=== PATIENT | male | born 1950 | race Caucasian/White ===

== ENCOUNTER → 2018-12-11 | Outpatient (CLI) | payer MEDICARE, OTHER ==
[~2018-12-11] MED LIST: ALBU90OI61 INH; AMLO5 PO; ANTIHYPERTENSIVE; ATEN50 PO; DIAZ5 PO; HYDCHL25 PO; LEVO750 PO; Naproxen500 MG PO; Percocet 5-3251 EACH PO; RAMI5 PO
[2018-12-14 13:44] LABS: Stool Occult Bld Immuno 1 Negative (NEGATIVE)
== END | disposition home or self-care (01) ==
LOC: LAB 12:53 → LAB SHORT 12:53 → LAB FUT 11-12 14:20
PROVIDERS: Family Medicine
DX: Z12.11 Encounter for screening for malignant neoplasm of colon (principal)
CPT/HCPCS: G0328

== ENCOUNTER 2019-11-30 06:12 | Day surgery (SDC) | payer MEDICARE, OTHER ==
[~2019-11-30] VITALS: Ht 177.8 cm; Wt 111.0 kg
[~2019-11-30 06:12] MED LIST changes: +AMLO10 PO; -AMLO5 PO; +ASPI81CH PO; +DOXA1 PO
[2019-11-30] MEDS ORDERED: CLOP75 PO (11:56)
--- NOTE | 2019-11-30 14:41 | NUR ---
PT AMB TO BTR WELL, R GROIN SITE STABLE, IV DC'D INTACT, 300MG PLAVIX GIVEN PER DR ORDER, PT STATES HE HAS PLAVIX 75 MG AT HOME AND WILL START TAKING TOMORROW, SISTER IN LAW GIVING PT RIDE HOME, PT DC'D BY WC BY THIS RN
== END 2019-11-30 15:05 | disposition home or self-care (01) ==
LOC: MHTC 06:12 → ORSCMMR 06:12 → MHTC 06:13
DX: I70.213 Atherosclerosis of native arteries of extremities with intermittent claudication, bilateral legs (principal); I10 Essential (primary) hypertension; F17.290 Nicotine dependence, other tobacco product, uncomplicated; I25.10 Atherosclerotic heart disease of native coronary artery without angina pectoris; E78.5 Hyperlipidemia, unspecified; Z88.8 Allergy status to other drugs, medicaments and biological substances; Z79.82 Long term (current) use of aspirin; Z79.899 Other long term (current) drug therapy
CPT/HCPCS: 37227; 37228; 37232; 75625; 75710; 75716; 75774; 85347; 99152; 99153; C1714; C1725; C1760; C1769; C1874; C1884; C1887; C1894; C2623; J1644; J2250; J3010; J7030; Q9967

== ENCOUNTER 2019-12-02 19:13 | Inpatient (IN) | payer MEDICARE, OTHER ==
[~2019-12-02] VITALS: Ht 185.4 cm; Wt 107.9 kg
[~2019-12-02 19:13] MED LIST changes: +CLOP75 PO
[2019-12-02 20:34] LABS: BASOPHILS ABSOLUTE AUTO 0.07 K/mm3 (0.00-0.23); BASOPHILS PERCENT AUTO 1 % (0-2); EOSINOPHILS ABSOLUTE AUTO 0.13 K/mm3 (0.00-0.68); EOSINOPHILS PERCENT AUTO 1 % (0-6); Hematocrit 44.3 % (37.0-53.0); Hemoglobin 14.9 g/dL (13.5-17.5); IMMATURE GRAN ABSOLUTE AUTO 0.04 K/mm3 (0.00-0.10); IMMATURE GRAN PERCENT AUTO 0 % (0-1); LYMPHOCYTES ABSOLUTE AUTO 2.83 K/mm3 (0.84-5.20); LYMPHOCYTES PERCENT AUTO 25 % (21-46); MONOCYTES ABSOLUTE AUTO 1.55 K/mm3 (0.16-1.47); MONOCYTES PERCENT AUTO 14 % (4-13); Mean Corpuscular HGB 31.9 pg (26.0-34.0); Mean Corpuscular HGB Conc 33.6 g/dL (31.5-36.5); Mean Corpuscular Volume 95 fL (80-100); NEUTROPHILS ABSOLUTE AUTO 6.63 K/mm3 (1.96-9.15); NEUTROPHILS PERCENT AUTO 59 % (41-73); Platelet Count 231 K/mm3 (150-400); RDW Coefficient Variation 13.2 % (11.7-14.2); RDW Standard Deviation 46.5 fL (35.1-46.3); Red Blood Cell Count 4.67 M/mm3 (4.30-5.90); White Blood Cell Count 11.25 K/mm3 (4.00-11.30)
[2019-12-02 20:53] LABS: Alanine Aminotransfer (ALT/SGP 30 U/L (12-78); Albumin, Blood 3.6 g/dL (3.4-5.0); Albumin/Globulin Ratio 0.8 (0.8-1.8); Alk Phos 47 U/L (50-136); Anion Gap 7 mmol/L (6-16); Aspartate Aminotrans (AST/SGOT 56 U/L (12-37); Bilirubin, Total 0.8 mg/dL (0.1-1.0); Blood Urea Nitrogen 21 mg/dL (8-24); Bun/Creatinine Ratio 21.4 (12.0-20.0); CO2, Blood 25 mmol/L (21-32); Chloride, Blood 101 mmol/L (98-108); Creatinine, Blood 0.98 mg/dL (0.60-1.20); Globulin, Blood 4.3 g/dL (2.2-4.0); Glomerular Filtration Rate >60 (60-); Glucose, Blood 98 mg/dL (70-99); Potassium, Blood 3.8 mmol/L (3.5-5.5); Sodium, Blood 133 mmol/L (136-145); Total Protein, Blood 7.9 g/dL (6.4-8.2)
[2019-12-02] MEDS ORDERED: Ventolin/Prove6.7 GM INH (21:17)
[2019-12-02] MEDS ORDERED: NICO21TP TOP (21:21)
[2019-12-02] MEDS ORDERED: LIVALO1 MG PO (21:21)
[2019-12-02] MEDS ORDERED: Cilostazol50 MG PO (21:22)
[2019-12-02 23:39] LABS: International Normalized Ratio 0.96; Prothrombin Time Results 10.3 Sec (9.7-11.5)
--- NOTE | 2019-12-03 01:20 | NUR ---
RECEIVED REPORT FROM KEVIN ED RN. PT TRANSPORTED TO PCU VIA GURNEY. STOOD AND PIVOTED TO BED UPON ARRIVAL. IN NO ACUTE DISTRESS. VS STABLE CALL LIGHT AND POSSESSIONS IN REACH, BED ALARM ACTIVATED. WILL CONTINUE TO MONITOR.
[2019-12-03 04:47] LABS: Hematocrit 41.8 % (37.0-53.0); Hemoglobin 13.8 g/dL (13.5-17.5); Mean Corpuscular HGB 31.9 pg (26.0-34.0); Mean Corpuscular Volume 97 fL (80-100); Mean Platelet Volume 9.4 fL (9.1-12.4); Platelet Count 217 K/mm3 (150-400); RDW Coefficient Variation 13.1 % (11.7-14.2); RDW Standard Deviation 47.1 fL (35.1-46.3); Red Blood Cell Count 4.33 M/mm3 (4.30-5.90); White Blood Cell Count 10.55 K/mm3 (4.00-11.30)
[2019-12-03 05:04] LABS: Alanine Aminotransfer (ALT/SGP 25 U/L (12-78); Albumin/Globulin Ratio 0.7 (0.8-1.8); Alk Phos 39 U/L (50-136); Anion Gap 6 mmol/L (6-16); Aspartate Aminotrans (AST/SGOT 49 U/L (12-37); Bilirubin, Total 0.9 mg/dL (0.1-1.0); Blood Urea Nitrogen 18 mg/dL (8-24); Bun/Creatinine Ratio 18.3 (12.0-20.0); CO2, Blood 26 mmol/L (21-32); Calcium, Blood 8.5 mg/dL (8.5-10.1); Chloride, Blood 101 mmol/L (98-108); Creatinine, Blood 0.98 mg/dL (0.60-1.20); Globulin, Blood 4.2 g/dL (2.2-4.0); Glomerular Filtration Rate >60 (60-); Glucose, Blood 97 mg/dL (70-99); Potassium, Blood 3.5 mmol/L (3.5-5.5); Sodium, Blood 133 mmol/L (136-145); Total Protein, Blood 7.2 g/dL (6.4-8.2)
--- NOTE | 2019-12-03 06:16 | NUR ---
PT SITTING UP IN BED WATCHING TELEVISION AT THIS TIME. WAS MONITORED EVERY 1-2 HOURS WITH NEEDS MET. SLEPT T/O. DENIES ANY NEEDS AT THIS TIME, CALL LIGHT AND POSSESSIONS IN REACH, BED IN LOW AND LOCKED POSITION, BED ALARM ACTIVATED.
--- NOTE | 2019-12-03 09:49 | NUR ---
PCU DAYSHIFT ASSUMED CARE PATIENT ALERT AND ORIENTED X4. RESP E/U ON ROOM AIR. PATIENT CONTINUES TO HAVE BLE PAIN. PATIENT HAD A REVASCULARIZATION TO BLE BY MD MULLER 11/30/[address] IN FEMORAL ARTERY. PATIENT CONTINEUS TO HAVE WEAK BLE PULSES, DISCOLORATION AND PAIN. HEPARIN GTT RUNNING PER EMAR. WILL CONTINUE TO MONTIOR. CALL LIGHT W/I REACH.
--- NOTE | 2019-12-03 17:53 | NUR ---
PCU DAYSHIFT SUMMARY PATIENT REMAINED ALERT AND ORIENTED T/O THE SHIFT X4. PATIENT HAS MODERATE TO SEVERE BLE PAIN DUE TO HIS PAD. PATIENT MEDICATED PER EMAR. PATIENTS VSS T/O SHIFT IN NSR IN THE 60'S. RESP E/U ON ROOM AIR. PATIENT TO SEE MD MULLER REGARDING REVASCULARIZATION. PATIENT EDUCATED MULTIPLE TIMES REGARDING SMOKING CESSATION. NICOTINE PATCH PLACED. WILL CONTINUE TO MONTIOR AND GIVE REPORT TO NOC SHIFT RN.
--- NOTE | 2019-12-03 19:30 | NUR ---
RECEIVED REPORT FROM JAMA MOYA. ASSUMED CARE OF PT. SITTING UP IN BED COMFORTABLY IN NO ACUTE DISTRESS, WATCHING TELEVISION. HEPARIN DRIP VERIFIED. PT DENIES ANY NEEDS AT THIS TIME. CALL LIGHT AND POSSESSIONS IN REACH, WILL CONTINUE TO MONITOR.
--- NOTE | 2019-12-03 21:50 | NUR ---
PT VISIBLY AGITATED, STATING, "WHY IS THIS THING (ALARM) BEEPING? HOW AM I SUPPOSED TO SLEEP?" RN EDUCATED PT REGARDING USE OF TAB ALARM FOR FALL PREVENTION POST MEDICATION ADMINISTRATION AND FOR GENERAL SAFETY. PT AGREEABLE AND RECEPTIVE. WILL CONTINUE TO MONITOR AND REINFORCE.
--- NOTE | 2019-12-04 06:24 | NUR ---
PT RESTING IN BED COMFORTABLY AT THIS TIME, IN NO ACUTE DISTRESS. WAS MONITORED EVERY 1-2 HOURS WITH NEEDS MET. DENIES ANY NEEDS. CALL LIGHT AND POSSESSIONS IN REACH, TAB ALARM IN PLACE, BED IN LOW POSITION.
[2019-12-04 06:54] LABS: Mean Platelet Volume 9.4 fL (9.1-12.4); Platelet Count 226 K/mm3 (150-400)
--- NOTE | 2019-12-04 18:15 | NUR ---
REPORT FROM DESK OFFICER RN.
--- NOTE | 2019-12-04 18:20 | NUR ---
REPORT FROM LORENA YUN IN PCU.
--- NOTE | 2019-12-04 18:34 | NUR ---
PT ARRIVES TO UNIT ALERT AND ORIENTED. PT TO ICU 9. SITES TO RIGHT GROIN, LEFT GROIN AND LEFT ANKLE WNL. DRESSING TO BILAT GROINS CLEAN AND DRY. PT DENIES PAIN, DENIES SOB. PT ANSWERS QUESTIONS APPROPRIATELY. SKIN DRY. VSS. WILL REPORT NOC RN.
--- NOTE | 2019-12-04 19:45 | NUR ---
ASSUMPTION OF CARE: PT IN ICU POST WARP SPOOLER. A&O. CURRENTLY ON FLAT TIME X 4 HRS. SB WITH HR IN THE 50S. SBP IN THE 110S. LUNG SOUNDS CLEAR SPO2 >90% ON RA. BILAT GROIN SITE DRESSINGS ARE C/D/I. NO HEMATOMA, NO BLEEDING, NO REPORTED TENDERNESS. RADIAL AND PEDAL PULSES PALPABLE. PT REPORTS SENSATION RETURNING BACK TO FEET AND THAT THEY FEEL "TINGLY". TOES ARE PINK AND WARM. IV IN RAC AND R HAND. RAC IV IS HOOKED UP TO NS BUT DRIP IS NOT RUNNING. HEPARIN ON STANDBY AWAITING CURRENT APTT. [facility]
--- NOTE | 2019-12-04 21:27 | NUR ---
PT INSTRUCTED ON IMPORTANCE OF FLAT TIME AND NEED TO KEEP LEGS STRAIGHT
--- NOTE | 2019-12-04 22:00 | NUR ---
PHARMACY CALLED REGARDING APTT RESULT AND HEPARIN DOSING. CALL PLACED TO DR MULLER RE ORDERS FOR HEPARIN DOSING. ORDERS RECEIVED TO BOLUS HEPARIN BASED ON APTT RESULT. DOSING PER PHARMACY.
--- NOTE | 2019-12-05 01:27 | NUR ---
PT CURRENTLY RESTING ON L SIDE. WAS ABLE TO SIT AND EAT DINNER. VITALS REMAIN STABLE. BILAT GROIN ACCESS SITES C/D/I. NO HEMATOMA, BLEEDING, OR PAIN. R PEDAL ACCESS SITE C/DI. PEDAL PULSES PRESENT. BILAT TOES ARE PINK AND WARM. PT STATED THEY ARE TINGLING BUT NOT PAINFUL LIKE THEY WERE PRIOR TO COMING INTO HOSPITAL.
[2019-12-05 04:24] LABS: Alanine Aminotransfer (ALT/SGP 35 U/L (12-78); Albumin, Blood 2.8 g/dL (3.4-5.0); Albumin/Globulin Ratio 0.7 (0.8-1.8); Alk Phos 52 U/L (50-136); Anion Gap 7 mmol/L (6-16); Aspartate Aminotrans (AST/SGOT 36 U/L (12-37); Bilirubin, Total 0.9 mg/dL (0.1-1.0); Blood Urea Nitrogen 15 mg/dL (8-24); Bun/Creatinine Ratio 15.5 (12.0-20.0); CO2, Blood 24 mmol/L (21-32); Calcium, Blood 8.6 mg/dL (8.5-10.1); Chloride, Blood 102 mmol/L (98-108); Creatinine, Blood 0.97 mg/dL (0.60-1.20); Globulin, Blood 4.1 g/dL (2.2-4.0); Glomerular Filtration Rate >60 (60-); Glucose, Blood 105 mg/dL (70-99); Sodium, Blood 133 mmol/L (136-145); Total Protein, Blood 6.9 g/dL (6.4-8.2)
--- NOTE | 2019-12-05 05:50 | NUR ---
NO ACUTE CHANGES THROUGHOUT SHIFT. BILAT GROIN SITES C/D/I. NO HEMATOMA, BLEED, OR PAIN. BILAT RADIAL AND BILAT PEDAL PRESENT. PT HAS BEEN RESTING COMFORTABLY THROUGHOUT SHIFT. HEPARIN INFUSING AT 20UN/KG. PT IS TO NPO AFTER BREAKFAST AND WILL GO BACK TO COLLECTIONS ANALYST TODAY.
--- NOTE | 2019-12-05 06:22 | NUR ---
PT REPORTING THAT R FOOT IS BEGINNING TO FEEL MORE NUMB. REPORTS IT IS STILL BETTER THAN A COUPLE DAYS AGO. PEDAL PULSES REMAIN FAINT SO CHECKED WITH DOPPLER. STILL PRESENT BILATERALLY. BOTH FEET ARE WARM AND PINK. CAP REFILL <3 SEC. PLAN IS FOR PT TO GO BACK TO FINISH MIXER. WILL REPORT TO DAY SHIFT CHANGES
--- NOTE | 2019-12-05 11:30 | NUR ---
DR. YOHANA MULLER TO BEDSIDE FOR REPEAT ASSESSMENT. PLAN CONTINUES FOR PRECINCT CAPTAIN THIS AFTERNOON/EVENING, NO SET TIME YET. PT AWARE AND AGREEABLE.
--- NOTE | 2019-12-05 12:28 | NUR ---
CARE ASSUMED REPORT RECEIVED, CARE ASSUMED AT 0700 FROM JAMA JUSTICE. PT ALERT FOR BEDSIDE REPORT, ABLE TO PARTICIPATE IN PLAN OF CARE. VITALS STABLE. ACCESS SITES C/D/I, SITES SOFT WITH NO HEMATOMAS. PT MEDICATED ONCE FOR PAIN, BUT SINCE THEN REPORTS PAIN MANAGEABLE. SENSATION TO BILATERAL FEET DECREASED, PT IS ABLE TO FEEL WHEN TOUCHED. PINK, WARM. PLAN FOR COLLECTIVE BARGAINING SPECIALIST THIS AFTERNOON. BREAKFAST GIVEN PER NURSE NOTIFY BY DR. MULLER, SINCE THEN PT NPO. PT HAS ARTICULATED NEEDS CLEARLY THROUGHOUT MORNING. HEPARIN GTT PER ORDERS. SEE FLOWSHEETS/ASSESSMENTS.
--- NOTE | 2019-12-05 16:38 | NUR ---
PT TO ADJUNCT ENGLISH INSTRUCTOR
--- NOTE | 2019-12-05 19:07 | NUR ---
RETURN FROM PROJECT PRODUCT MANAGER PT RETURNED FROM PROJECT PRODUCT MANAGER AT 1858. VITALS STABLE. LEFT PEDAL SITE STABLE. PULSES PRESENT WITH DOPPLER. PT BOOSTED IN BED FOR COMFORT, DECLINES FURTHER NEEDS. REPORT TO JAMA RILEY TO ASSUME CARE. HEPARIN GTT VERIFIED.
--- NOTE | 2019-12-05 21:30 | NUR ---
ASSUMED CARE OF PT, REPORT RCV'D FROM JAMA SLAUGHTER. PT BACK FROM DOOR FRAMER AT 0650. PT ALERT AND ORIENTED COMPLAINING OF 9-10/10 PAIN BLE. LEFT PEDAL ACCESS SITE DRESSING C/D/I, C/O TINGLING. BLE WARM, PINK. DOPPLER PULSES BLE, LEFT PULSE MORE FAINT THAN RIGHT. HEPARIN GTT INFUSING @21 U/KG/HR WITH DOSING WT 92 KG. SEE FULL SHIFT ASSESSMENT
[2019-12-06 04:31] LABS: BASOPHILS ABSOLUTE AUTO 0.07 K/mm3 (0.00-0.23); BASOPHILS PERCENT AUTO 1 % (0-2); EOSINOPHILS PERCENT AUTO 1 % (0-6); Hematocrit 40.1 % (37.0-53.0); Hemoglobin 13.5 g/dL (13.5-17.5); IMMATURE GRAN ABSOLUTE AUTO 0.02 K/mm3 (0.00-0.10); IMMATURE GRAN PERCENT AUTO 0 % (0-1); LYMPHOCYTES PERCENT AUTO 21 % (21-46); MONOCYTES ABSOLUTE AUTO 1.06 K/mm3 (0.16-1.47); MONOCYTES PERCENT AUTO 12 % (4-13); Mean Corpuscular HGB 31.5 pg (26.0-34.0); Mean Corpuscular HGB Conc 33.7 g/dL (31.5-36.5); Mean Platelet Volume 8.7 fL (9.1-12.4); NEUTROPHILS PERCENT AUTO 65 % (41-73); Platelet Count 257 K/mm3 (150-400); RDW Coefficient Variation 12.5 % (11.7-14.2); RDW Standard Deviation 43.3 fL (35.1-46.3); Red Blood Cell Count 4.28 M/mm3 (4.30-5.90); White Blood Cell Count 9.05 K/mm3 (4.00-11.30)
[2019-12-06 04:37] LABS: Mean Corpuscular Volume 94 fL (80-100)
[2019-12-06 04:47] LABS: Anion Gap 4 mmol/L (6-16); Blood Urea Nitrogen 13 mg/dL (8-24); Bun/Creatinine Ratio 15.3 (12.0-20.0); CO2, Blood 28 mmol/L (21-32); Calcium, Blood 8.6 mg/dL (8.5-10.1); Chloride, Blood 99 mmol/L (98-108); Creatinine, Blood 0.85 mg/dL (0.60-1.20); Glomerular Filtration Rate >60 (60-); Glucose, Blood 115 mg/dL (70-99); Potassium, Blood 3.9 mmol/L (3.5-5.5); Sodium, Blood 131 mmol/L (136-145)
--- NOTE | 2019-12-06 06:08 | NUR ---
SHIFT SUMMARY NO ACUTE CHANGES OVERNIGHT. LEFT PEDAL ACCESS SITE DRESSING REMAINS C/D/I, L FOOT PULSES HEARD WITH DOPPLER, LEFT FOOT WARM/PINK. PT REPORTS LESSENING PAIN SHIFT PROGRESSES. PT DENIES PAIN IN RIGHT LEG AT THIS TIME. BILATERAL FEMORAL ACCESS SITES UNCHANGED SINCE BEGINNING OF SHIFT. HEPARIN INFUSING @ 22 U/KG/HR WITH 92 KG DOSING WT. VSS T/O SHIFT. WILL REPORT TO DAYSHIFT NURSE
--- NOTE | 2019-12-06 07:40 | NUR ---
CARE ASSUMED REPORT RECEIVED, CARE ASSUMED AT 0700. PT ASLEEP, AROUSES EASILY FOR ASSESSMENT. VITALS STABLE. PULSES PRESENT TO BILATERAL LOWER EXTREMITIES WITH DOPPLER. PT REPORTS PAIN SPECIFICALLY IN LEFT FOOT, DECLINES MEDICATIONS AT THIS TIME. SEE VITALS FLOWSHEET AND ASSESSMENT. PT DENIES NEEDS AT THIS TIME. AGREEABLE TO DO BATH/SHOWER AFTER BREAKFAST.
--- NOTE | 2019-12-06 10:02 | NUR ---
TRANSFER DR. SAMANO TO BEDSIDE FOR ASSESSMENT. PLAN FOR ONE MORE NIGHT IN HOSPITAL FOR PT/OT EVALUATION AND POSSIBLE SNF PLACEMENT TOMORROW. TRANSFER TO MEDICAL NO TELEMETRY STATUS. ATTEMPTED TO CONTACT DR. MULLER TO DISCUSS PLAN FOR HEPARIN GTT, AWAITING RETURN PHONE CALL. NOTIFIED BY CIRCULAR SAW OPERATOR THAT PT TO TRANSFER TO MEDICAL FLOOR ROOM 324. PT UPDATED AND AGREEABLE TO PLAN. REPORT GIVEN TO JAMA TERESA ON MEDICAL FLOOR.
--- NOTE | 2019-12-06 10:36 | NUR ---
TRANSFER PT TO ROOM 324 VIA WHEELCHAIR WITH HEPARIN GTT INFUSING PER ORDERS. JAMA TERESA AT BEDSIDE. PT ABLE TO STAND AND TRANSFER TO BED WITH STANDBY ASSIST.
--- NOTE | 2019-12-06 13:50 | NUR ---
Permission for care given to student by patient at 13:50
--- NOTE | 2019-12-06 16:59 | NUR ---
SHIFT SUMMARY PATIENT TRANSFERED FROM THE ICU TO THIS RN. TRANSFERED 1 PERSON ASSIST TO BED. PATIENT IS ALERT AND ORIENTED. USES THE URINAL. PATIENT WORKED WITH PT/OT TODAY, TOLERATED THIS WELL. HE IS ABLE TO MAKE HIS NEEDS KNOWN. CONTINUES TO HAVE PAIN IN THE L LEG.MEDICATED PER EMAR FOR DISCOMFORT.
--- NOTE | 2019-12-06 19:57 | NUR ---
patient sitting up in bed. He rports pain 4/10. we discussed pain meds, risk of falling, patient is AOx4 and calling appropriately. Shift assessment completed. bed low and locked. call stokes within reach.
--- NOTE | 2019-12-07 04:38 | NUR ---
SPOKE TO DR HORNER REGARDING PATIENT TEMP 100.4 RECVD ORDER FOR TYLENOL.
[2019-12-07 04:51] LABS: BASOPHILS ABSOLUTE AUTO 0.12 K/mm3 (0.00-0.23); BASOPHILS PERCENT AUTO 1 % (0-2); EOSINOPHILS ABSOLUTE AUTO 0.29 K/mm3 (0.00-0.68); EOSINOPHILS PERCENT AUTO 3 % (0-6); Hematocrit 38.4 % (37.0-53.0); Hemoglobin 13.1 g/dL (13.5-17.5); IMMATURE GRAN ABSOLUTE AUTO 0.02 K/mm3 (0.00-0.10); IMMATURE GRAN PERCENT AUTO 0 % (0-1); LYMPHOCYTES ABSOLUTE AUTO 1.89 K/mm3 (0.84-5.20); LYMPHOCYTES PERCENT AUTO 20 % (21-46); MONOCYTES ABSOLUTE AUTO 1.22 K/mm3 (0.16-1.47); MONOCYTES PERCENT AUTO 13 % (4-13); Mean Corpuscular HGB Conc 34.1 g/dL (31.5-36.5); Mean Corpuscular Volume 94 fL (80-100); Mean Platelet Volume 8.7 fL (9.1-12.4); NEUTROPHILS ABSOLUTE AUTO 5.87 K/mm3 (1.96-9.15); NEUTROPHILS PERCENT AUTO 62 % (41-73); Platelet Count 258 K/mm3 (150-400); RDW Coefficient Variation 12.5 % (11.7-14.2); RDW Standard Deviation 43.3 fL (35.1-46.3); White Blood Cell Count 9.41 K/mm3 (4.00-11.30)
[2019-12-07 05:12] LABS: Anion Gap 7 mmol/L (6-16); Blood Urea Nitrogen 18 mg/dL (8-24); CO2, Blood 23 mmol/L (21-32); Calcium, Blood 8.6 mg/dL (8.5-10.1); Chloride, Blood 99 mmol/L (98-108); Glomerular Filtration Rate >60 (60-); Glucose, Blood 97 mg/dL (70-99); Potassium, Blood 3.9 mmol/L (3.5-5.5); Sodium, Blood 129 mmol/L (136-145)
--- NOTE | 2019-12-07 06:42 | NUR ---
END OF SHIFT: PATIENT DECLINED PAIN MED MOST OF THE NIGHT BUT WHEN HE FINALLY AGREED TO TAKE A PAIN MED HE SAID HIS PAIN WAS A 7/10. PAIN MED GIVEN PER EMAR. TWICE THIS SHIFT. EDUCATED PATIENT ABOUT PAIN MANAGEMENT; THAT HE SHOULD TAKE IT WHEN IT STARTS TO INCREASE RATHER THAN WAITING FOR THE PAIN TO BE REALLY SEVERE.
[2019-12-07] MEDS ORDERED: Pravachol40 MG PO (10:59)
--- NOTE | 2019-12-07 11:51 | NUR ---
DISCHARGE NOTE PATIENT DISCHARGED WITH SISTER. HARD SCRIPT GIVEN FROM DR. LEWIS. 1X DOSE OF NORCO GIVEN PER ORDER FOR DRIVE HOME. SCRIPTS FAXED TO [facility] IN [place].
== END 2019-12-07 12:03 | disposition home health service (06) | DRG 272 ==
LOC: ER 19:13 → PCU 19:14 → ICUW 12-04 18:33 → MEDS 12-06 10:40
PROVIDERS: Emergency Medicine; Internal Medicine; Physician Assistant; ADMIT Internal Medicine
PROC: 047L3D1 Dilation of Left Femoral Artery with Intraluminal Device, using Drug-Coated Balloon, Percutaneous Approach (ICD-10-PCS; principal; 2019-12-04)
PROC: B41G1ZZ Fluoroscopy of Left Lower Extremity Arteries using Low Osmolar Contrast (ICD-10-PCS; 2019-12-04)
PROC: B41C1ZZ Fluoroscopy of Pelvic Arteries using Low Osmolar Contrast (ICD-10-PCS; 2019-12-04)
PROC: 04CL3ZZ Extirpation of Matter from Left Femoral Artery, Percutaneous Approach (ICD-10-PCS; 2019-12-04)
PROC: X27J385 Dilation of Left Femoral Artery with Sustained Release Drug-eluting Intraluminal Device, Percutaneous Approach, New Technology Group 5 (ICD-10-PCS; 2019-12-04)
DX: I77.1 Stricture of artery (principal); E78.5 Hyperlipidemia, unspecified; I10 Essential (primary) hypertension; I73.9 Peripheral vascular disease, unspecified; F17.210 Nicotine dependence, cigarettes, uncomplicated
CPT/HCPCS: 36415; 37224; 37227; 75710; 75716; 75774; 76937; 80048; 80053; 85025; 85027; 85049; 85347; 85610; 85730; 90686; 93005; 93010; 93925; 94760; 96365; 96375; 96376; 97112; 97162; 97165; 97530; 99152; 99153; 99285-25; A9270; A9270-GY; C1714; C1725; C1769; C1874; C1887; C1894; C2623; G0008; G0378; J1170; J1644; J2250; J3010; J7030; J7040; Q9967

== ENCOUNTER 2020-02-22 12:30 | Inpatient (IN) | payer MEDICARE, OTHER ==
[~2020-02-22] VITALS: Ht 185.4 cm; Wt 108.9 kg
[~2020-02-22 12:30] MED LIST changes: +AIRDUO RESPICL1 EAC3 INH; +Cilostazol50 MG PO; +GABA300 PO; +LIVALO1 MG PO; +LIVALO4 MG PO; +NICO21TP TOP; +Pravachol40 MG PO; +ROSU5 PO; +Ventolin/Prove6.7 GM INH
[2020-02-22] MEDS ORDERED: Oxycodone-Apap1 EAC3 PO (15:58)
--- NOTE | 2020-02-22 16:31 | NUR ---
PT PREVIOUSLY MEDICATED WITH FENTANYL FOR 8/10 LEFT LEG PAIN, PT REPORTS NOW THAT PAIN LEVEL IS TOLERABLE. SITTING ON EDGE OF BED, DENIES ANY NEEDS AT THIS TIME. CALL LIGHT WITHIN REACH. PT AWAITING PROCEDURE.
--- NOTE | 2020-02-22 22:00 | NUR ---
PT TO ICU 13 @ 2110, PT VERY DROWSY, AROUSES TO VERBAL STIMULI, FALLS ASLEEP DURING ASSESSMENT, ORIENTED TO SELF, PLACE, EVENT AND FOLLOWING DIRECTIONS. O2 SATURATIONS> 90% ON RA, MONITOR SHOWS SINUS RHYTHM, HR 70'S, HTN WITH SBP 150'S. PT REPORTS PAIN TO L LIMB, DENIES PAIN MEDICATIONS AT THIS TIME. ARTERIAL SHEATH IN PLACE TO L TIBIAL, INF TPA @ 1mg/hr. HEPARIN INF TO PERIPHERAL IV, 500u/hr (10ml/hr). UNABLE TO PALPATE L PEDAL PULSE DUE TO SHEATH PLACEMENT AND DRESSING TO DP, DOPPLER PULSES ABSENT, L FOOT/TOES CYANOTIC/PURPLE AND COOL TO THE TOUCH, GOOD CAP REFILL, L POPLITEAL PULSE PRESENT. PT UNABLE TO FEEL TOUCH SENSATION TO L FOOT.
[2020-02-23 03:19] LABS: BASOPHILS ABSOLUTE AUTO 0.06 K/mm3 (0.00-0.23); BASOPHILS PERCENT AUTO 1 % (0-2); EOSINOPHILS ABSOLUTE AUTO 0.04 K/mm3 (0.00-0.68); EOSINOPHILS PERCENT AUTO 1 % (0-6); Hematocrit 43.3 % (37.0-53.0); Hemoglobin 14.3 g/dL (13.5-17.5); IMMATURE GRAN ABSOLUTE AUTO 0.03 K/mm3 (0.00-0.10); IMMATURE GRAN PERCENT AUTO 0 % (0-1); LYMPHOCYTES PERCENT AUTO 14 % (21-46); MONOCYTES ABSOLUTE AUTO 0.57 K/mm3 (0.16-1.47); MONOCYTES PERCENT AUTO 7 % (4-13); Mean Corpuscular HGB 30.6 pg (26.0-34.0); Mean Corpuscular Volume 93 fL (80-100); Mean Platelet Volume 7.9 fL (9.1-12.4); NEUTROPHILS ABSOLUTE AUTO 6.75 K/mm3 (1.96-9.15); NEUTROPHILS PERCENT AUTO 78 % (41-73); Platelet Count 180 K/mm3 (150-400); RDW Coefficient Variation 15.6 % (11.7-14.2); Red Blood Cell Count 4.67 M/mm3 (4.30-5.90); White Blood Cell Count 8.65 K/mm3 (4.00-11.30)
[2020-02-23 03:37] LABS: Alanine Aminotransfer (ALT/SGP 16 U/L (12-78); Albumin, Blood 3.4 g/dL (3.4-5.0); Albumin/Globulin Ratio 0.8 (0.8-1.8); Alk Phos 59 U/L (50-136); Anion Gap 7 mmol/L (6-16); Aspartate Aminotrans (AST/SGOT 23 U/L (12-37); Bilirubin, Total 0.6 mg/dL (0.1-1.0); Blood Urea Nitrogen 14 mg/dL (8-24); Bun/Creatinine Ratio 19.2 (12.0-20.0); CO2, Blood 25 mmol/L (21-32); Calcium, Blood 8.8 mg/dL (8.5-10.1); Chloride, Blood 103 mmol/L (98-108); Creatinine, Blood 0.73 mg/dL (0.60-1.20); Glomerular Filtration Rate >60 (60-); Glucose, Blood 107 mg/dL (70-99); Potassium, Blood 3.6 mmol/L (3.5-5.5); Sodium, Blood 135 mmol/L (136-145); Total Protein, Blood 7.4 g/dL (6.4-8.2)
--- NOTE | 2020-02-23 07:15 | NUR ---
BEGINNING OF SHIFT Assumed care at 0700. Bedside report received from Nuzhat YUN. Pt A&O x 2. Lethargic. SpO2 90% or greater RA. Arterial sheath present to left post tibial artery. TPA infusing through sheath. Rate at 1 mg/hr. To remain at this rate per Dr Tom. Heparin infusing through peripheral IV per orders. Left toes cyanotic with capillary refill greater than 3 seconds. Per report, toes are improved in appearance. Pt states desire to get OOB. This RN reviewed medication delivery through arterial sheath and discouraged out of bed activity. Pt agreeable. Bed in lowest position. Call light in reach. Bed alarm on.
--- NOTE | 2020-02-23 07:26 | NUR ---
SHIFT SUMMARY PT SLEPT T/O SHIFT, INCREASED ALERTNESS TOWARDS END OF SHIFT. PT REMAINS ON RA, O2 SATURATIONS>90%, MONITOR SHOWS SINUS RHYTHM, BP STABLE. PT REMAINED NPO T/O SHIFT. PT MEDICATED FOR PAIN x2 THIS SHIFT, FENTANYL ADEQUATE FOR PAIN CONTROL. TPA @ 1MG/HR INF TO L FOOT ARTERIAL SHEATH, HEPARIN INF @ 500u/hr (10ml/hr) PER PERIPHERAL IV. L FOOT REMAINS COOL TO THE TOUCH, TOES CYANOTIC. PLAN FOR SUPERVISOR PIPELINE MAINTENANCE TODAY, REPORT GIVEN TO KIMBERLY YUN.
--- NOTE | 2020-02-23 08:15 | NUR ---
DR MULLER IN TO SEE PT Reviewed appearance of LLE. Provider aware of pt's pain to LLE. Pt states 10/10 pain, stabbing. Started approx 10 minutes ago. Sheath is also leaking a small amount of blood. Provider aware. Plans for pt to be taken to yard laborer soon.
--- NOTE | 2020-02-23 08:30 | NUR ---
PT TO CHILD DEVELOPMENT SPECIALIST Reji RN in room to take pt to laboratory monitor. RN aware that pt just received dose of fentanyl.
--- NOTE | 2020-02-23 10:49 | NUR ---
UPDATE Pt returned from garage laborer. Arterial sheath to left post tibial absent. Gian patch in place. Site has quarter-sized amount of drainage on dressing. Outlined. Will continue to assess. Tegaderm CHG in place over right dosral foot from pedal access on 02/20. Dressing C/D/I. Tegaderm chg to new right femoral artery site. Per report, angioseal used. Site C/D/I. No bruising or hematoma noted.
--- NOTE | 2020-02-23 11:12 | NUR ---
AM MEDS Held preprocedure. Plan to give meds when pt is more alert.
--- NOTE | 2020-02-23 18:40 | NUR ---
SUMMARY Pt is currently PCU status. Pt has been A&O x 4 for most of time this afternoon. Pt sat up in chair for about 4 hours. Pt did not eat breakfast or lunch. Tolerated dinner well. Pt on room air for entire shift. Sinus rhtyhm per monitor. BP hypertensive, but this resolved when pt received his AM meds. Pt's right groin site stable. Remains covered with tegaderm CHG with no drainage, bruising, or hematoma. RLE assessment unchanged from pre-access assessment. Pt initially had arterial sheath to left posttibial artery. Sheath removed upon arrival back to ICU from laboratory aide. Gian patch in place. Pt has arterial site to dorsum of left foot from access yesterday. Dressing changed to tegaderm CHG in cathlab. WIth ambulation to chair today, site started bleeding. Pressure held for 5 minutes by this RN. Gian patch placed. No bleeding since. Unable to locate distal pulses with doppler on left foot. Toes remain cyanotic but cyanotic area is regressing. This afternoon, pain is tolerable to left foot. Heparin drip infusing per orders. Will continue to closely monitor until care handoff and bedside report with oncoming RN.
[2020-02-24 01:35] LABS: BASOPHILS ABSOLUTE AUTO 0.05 K/mm3 (0.00-0.23); BASOPHILS PERCENT AUTO 1 % (0-2); EOSINOPHILS ABSOLUTE AUTO 0.08 K/mm3 (0.00-0.68); EOSINOPHILS PERCENT AUTO 1 % (0-6); Hematocrit 39.2 % (37.0-53.0); Hemoglobin 12.8 g/dL (13.5-17.5); IMMATURE GRAN ABSOLUTE AUTO 0.02 K/mm3 (0.00-0.10); IMMATURE GRAN PERCENT AUTO 0 % (0-1); LYMPHOCYTES ABSOLUTE AUTO 1.89 K/mm3 (0.84-5.20); LYMPHOCYTES PERCENT AUTO 28 % (21-46); MONOCYTES PERCENT AUTO 9 % (4-13); Mean Corpuscular HGB 30.4 pg (26.0-34.0); Mean Corpuscular HGB Conc 32.7 g/dL (31.5-36.5); Mean Corpuscular Volume 93 fL (80-100); Mean Platelet Volume 8.4 fL (9.1-12.4); NEUTROPHILS ABSOLUTE AUTO 4.18 K/mm3 (1.96-9.15); NEUTROPHILS PERCENT AUTO 61 % (41-73); Platelet Count 143 K/mm3 (150-400); RDW Coefficient Variation 15.8 % (11.7-14.2); RDW Standard Deviation 53.2 fL (35.1-46.3); Red Blood Cell Count 4.21 M/mm3 (4.30-5.90); White Blood Cell Count 6.82 K/mm3 (4.00-11.30)
--- NOTE | 2020-02-24 04:44 | NUR ---
SHIFT SUMMARY PATIENT HAS SLEPT OFF AND ON THROUGH NIGHT. PAIN GREATLLY IMPROVED WITH ADDITION OF NORCO. HAVE NOTICED TOES HAVE BECOME MORE PURPLE; AT BEGIN OF SHIFT, PURPLE WAS NOTED ONLY ON UNDERSIDE OF TOES, NOW ABOUT PRISON UP TOES ON THE DORSAL ASPECT. STILL ABLE TO DOPPLE TIBIAL PULSE, SOUNDS STRONGER EVEN THAN BEGIN OF SHIFT. RIGHT FEMORAL SITE STABLE THROUGH NIGHT, NO OOZING, S/S OF BLEEDING. VSS. ASSESSMENT IS CHARTED. WILL CONTINUE TO MONITOR.
[2020-02-24 08:33] LABS: BASOPHILS ABSOLUTE AUTO 0.05 K/mm3 (0.00-0.23); BASOPHILS PERCENT AUTO 1 % (0-2); EOSINOPHILS ABSOLUTE AUTO 0.07 K/mm3 (0.00-0.68); EOSINOPHILS PERCENT AUTO 1 % (0-6); Hematocrit 36.8 % (37.0-53.0); Hemoglobin 12.4 g/dL (13.5-17.5); IMMATURE GRAN ABSOLUTE AUTO 0.01 K/mm3 (0.00-0.10); IMMATURE GRAN PERCENT AUTO 0 % (0-1); LYMPHOCYTES PERCENT AUTO 27 % (21-46); MONOCYTES ABSOLUTE AUTO 0.68 K/mm3 (0.16-1.47); MONOCYTES PERCENT AUTO 10 % (4-13); Mean Corpuscular HGB 30.9 pg (26.0-34.0); Mean Corpuscular HGB Conc 33.7 g/dL (31.5-36.5); Mean Corpuscular Volume 92 fL (80-100); Mean Platelet Volume 8.2 fL (9.1-12.4); NEUTROPHILS ABSOLUTE AUTO 4.24 K/mm3 (1.96-9.15); NEUTROPHILS PERCENT AUTO 61 % (41-73); Platelet Count 168 K/mm3 (150-400); RDW Coefficient Variation 15.9 % (11.7-14.2); RDW Standard Deviation 52.8 fL (35.1-46.3); Red Blood Cell Count 4.01 M/mm3 (4.30-5.90); White Blood Cell Count 6.95 K/mm3 (4.00-11.30)
--- NOTE | 2020-02-24 11:40 | NUR ---
BEGINNING OF SHIFT Assumed care at 0700. Bedside report received from Edgardo YUN. Pt A&O x 4. Pt on room air. SpO2 90% or greater. Pt on heart monitor, sinus rhtyhm. Dr Eagle in to see pt early this AM. States pt okay for medical floor status without telemetry. Plan for pt to work with PT today, potential for discharge home tommorow. Heparin drip stopped 1 hour after PO xarelto given.
--- NOTE | 2020-02-24 13:53 | NUR ---
CALL PLACED TO DR EVENS Echols stated concern about pt's breathing pattern while sleeping. Pt snores and has brief periods of apnea. No SpO2 desaturations noted, however pt has been sleeping with bed in fowlers or high fowlers position. Requested pt has sleep oximetry study tonight. This RN placed call to Dr Eagle to update. New orders received. Discussed pt's pain control with oxycodone. Discontinued hydrocodone and fentanyl.
--- NOTE | 2020-02-24 15:41 | NUR ---
TRANSFER TO MEDICAL FLOOR Pt transferred to room 341. Telephone report given to Sandoval YUN. Pt transported via wheelchair, accompanied by this RN. Chart, medications, and belongings transported with patient.
--- NOTE | 2020-02-24 19:12 | NUR ---
SHIFT SUMMARY: PATIENT XFR FROM ICU-13 THIS SHIFT. PT A&O; CALM AND COOPERATIVE WITH CARE. HX PAD; REVASCULARIZATION THIS VISIT; MEDICATED FOR LLE PAIN PER EMAR; TEGADERM CHGs TO R GROIN, L FOOT X2; ALL DRESSINGS C/D/I. SLEEP OXIMETRY PLANNED FOR 02/23. REPORT GIVEN TO ONCOMING RN.
--- NOTE | 2020-02-25 03:17 | NUR ---
SHIFT SUMMARY PATIENT HAD NO ACUTE CHANGES OBSERVED. AXOX 3 AND ONE ASSIST TO CHAIR. PIV REMAINS INTACT. TEGADERM AT ALL SITES REMAIN C/D/I, R GROIN AND L FOOT X 2. SLEEP STUDY IN PROGRESS. VSS/AFEBRILE. SCHEDULE OXYCODONE GIVEN PER EMAR. DENIES SOB AND N/V. CALL LIGHT IN REACH. BED IN LOWEST POSITION. WILL CONTINUE TO MONITOR UNTIL DAY SHIFT NURSE ASSUMES CARE.
[2020-02-25] MEDS ORDERED: XARELTO20 MG PO (12:58)
--- NOTE | 2020-02-25 14:13 | NUR ---
PATIENT DISCHARGE: PATIENT DISCHARGED TO HOME THIS SHIFT. MEDICATION RECONCILIATION COMPLETED; MED LIST FAXED TO [facility]; HARD SCRIPT PROVIDED TO PATIENT FOR CONTROLLED SUBSTANCE. DISCHARGE EDUCATION COMPLETED WITH PATIENT. PATIENT TRANSPORTED TO EXIT BY [facility] STA[facility] WITH WHEELCHAIR AT 1355. PATIENT DEPARTED [facility] VIA PRIVATE AUTO.
== END 2020-02-25 13:57 | disposition home health service (06) | DRG 253 ==
LOC: ORSCSDS 12:30 → MHTC 12:30 → ICUW 21:30 → MHTC 21:30 → ORSCSDS 22:00 → ICUW 22:00 → MEDS 02-23 15:23 → ICUW 02-24 08:29 → MEDS 02-24 14:17 → ENPENDDIS 02-25 11:00 → MEDS 02-25 13:57
PROVIDERS: Hospitalist; ADMIT Internal Medicine
PROC: 047L3Z1 Dilation of Left Femoral Artery using Drug-Coated Balloon, Percutaneous Approach (ICD-10-PCS; principal; 2020-02-23)
PROC: 047S3ZZ Dilation of Left Posterior Tibial Artery, Percutaneous Approach (ICD-10-PCS; 2020-02-23)
PROC: 3E05317 Introduction of Other Thrombolytic into Peripheral Artery, Percutaneous Approach (ICD-10-PCS; 2020-02-23)
DX: I99.8 Other disorder of circulatory system (principal); T82.868A Thrombosis due to vascular prosthetic devices, implants and grafts, initial encounter; I70.212 Atherosclerosis of native arteries of extremities with intermittent claudication, left leg; I10 Essential (primary) hypertension; J44.9 Chronic obstructive pulmonary disease, unspecified
CPT/HCPCS: 36415; 37184; 37185; 37224; 37228; 37232; 71045; 75710; 76937; 80053; 85025; 85347; 85384; 85730; 94762; 97110; 97162; 99152; 99153; A9270-GY; C1725; C1751; C1757; C1760; C1769; C1887; C1894; J0360; J1200; J1644; J2060; J2250; J2270; J2997; J3010; J7030; J7040; Q9967

== ENCOUNTER → 2022-01-19 | Outpatient (CLI) | payer MEDICARE, OTHER ==
[~2022-01-19] MED LIST changes: +Oxycodone-Apap1 EAC3 PO; +XARELTO20 MG PO
[2022-01-19 13:32] LABS: U Amphetamine Screen Not Detected; U Barbituate Screen Not Detected; U Benzodiazapine Screen Not Detected; U Buprenorphine Screen Not Detected; U Cannabinoids Screen Not Detected; U Cocaine Screen Not Detected; U Methadone Screen Not Detected; U Methamphetamine Screen Not Detected; U Opiates Screen Not Detected; U Oxycodone Screen Not Detected; U Phencyclidine Screen Not Detected; U Propoxyphene Screen Not Detected
== END | disposition home or self-care (01) ==
LOC: LAB SHORT 10:45
PROVIDERS: Family Medicine
DX: Z51.81 Encounter for therapeutic drug level monitoring (principal); Z79.899 Other long term (current) drug therapy

== ENCOUNTER → 2022-09-23 | Outpatient (CLI) | payer MEDICARE, OTHER ==
[2022-09-23 11:29] LABS: BASOPHILS ABSOLUTE AUTO 0.07 K/mm3 (0.00-0.23); BASOPHILS PERCENT AUTO 1 % (0-2); EOSINOPHILS ABSOLUTE AUTO 0.21 K/mm3 (0.00-0.68); EOSINOPHILS PERCENT AUTO 3 % (0-6); Hematocrit 43.9 % (37.0-53.0); Hemoglobin 15.2 g/dL (13.5-17.5); IMMATURE GRAN ABSOLUTE AUTO 0.02 K/mm3 (0.00-0.10); IMMATURE GRAN PERCENT AUTO 0 % (0-1); LYMPHOCYTES ABSOLUTE AUTO 2.23 K/mm3 (0.84-5.20); LYMPHOCYTES PERCENT AUTO 32 % (21-46); MONOCYTES PERCENT AUTO 12 % (4-13); Mean Corpuscular HGB Conc 34.6 g/dL (31.5-36.5); Mean Corpuscular Volume 95 fL (80-100); Mean Platelet Volume 8.1 fL (9.1-12.4); NEUTROPHILS ABSOLUTE AUTO 3.64 K/mm3 (1.96-9.15); NEUTROPHILS PERCENT AUTO 52 % (41-73); Platelet Count 307 K/mm3 (150-400); RDW Coefficient Variation 12.9 % (11.7-14.2); RDW Standard Deviation 44.8 fL (35.1-46.3); White Blood Cell Count 6.97 K/mm3 (4.00-11.30)
== END ==
LOC: LAB SHORT 11:25 → LAB 11:25
PROVIDERS: Physician Assistant Surgical
DX: R22.31 Localized swelling, mass and lump, right upper limb (principal)
CPT/HCPCS: 84550; 85025

== ENCOUNTER → 2022-10-22 | Outpatient (CLI) | payer MEDICARE, OTHER ==
[2022-10-22 16:03] LABS: U Amphetamine Screen Not Detected; U Barbituate Screen Not Detected; U Benzodiazapine Screen Not Detected; U Buprenorphine Screen Not Detected; U Cannabinoids Screen Not Detected; U Cocaine Screen Not Detected; U Methadone Screen Not Detected; U Methamphetamine Screen Not Detected; U Opiates Screen Not Detected; U Oxycodone Screen DETECTED; U Phencyclidine Screen Not Detected; U Propoxyphene Screen Not Detected
== END ==
LOC: LAB 11:13 → LAB SHORT 11:13
PROVIDERS: Family Medicine
DX: Z51.81 Encounter for therapeutic drug level monitoring (principal); Z79.899 Other long term (current) drug therapy

== ENCOUNTER → 2023-03-24 | Outpatient (CLI) | payer MEDICARE, OTHER ==
[2023-03-24 17:37] LABS: U Amphetamine Screen Not Detected; U Barbituate Screen Not Detected; U Benzodiazapine Screen Not Detected; U Buprenorphine Screen Not Detected; U Cannabinoids Screen Not Detected; U Cocaine Screen Not Detected; U Methadone Screen Not Detected; U Methamphetamine Screen Not Detected; U Opiates Screen Not Detected; U Oxycodone Screen DETECTED; U Phencyclidine Screen Not Detected; U Propoxyphene Screen Not Detected
== END | disposition home or self-care (01) ==
LOC: LAB SHORT 09:30
PROVIDERS: Family Medicine
DX: Z51.81 Encounter for therapeutic drug level monitoring (principal); Z79.891 Long term (current) use of opiate analgesic

== ENCOUNTER → 2023-05-26 | Outpatient (CLI) | payer MEDICARE, OTHER | LOC: LAB 10:00 → LAB SHORT 10:00 | DX: R30.0 Dysuria (principal) | CPT/HCPCS: 87086 ==

== ENCOUNTER → 2023-05-26 | Outpatient (CLI) | payer MEDICARE, OTHER ==
[2023-05-26 17:29] LABS: U Amphetamine Screen Not Detected; U Barbituate Screen Not Detected; U Benzodiazapine Screen Not Detected; U Buprenorphine Screen Not Detected; U Cannabinoids Screen Not Detected; U Cocaine Screen Not Detected; U Methadone Screen Not Detected; U Methamphetamine Screen Not Detected; U Opiates Screen Not Detected; U Oxycodone Screen DETECTED; U Phencyclidine Screen Not Detected; U Propoxyphene Screen Not Detected
== END | disposition home or self-care (01) ==
LOC: LAB 10:00 → LAB SHORT 10:00
PROVIDERS: Family Medicine
DX: Z51.81 Encounter for therapeutic drug level monitoring (principal); Z79.899 Other long term (current) drug therapy

== ENCOUNTER 2023-08-13 06:52 | Day surgery (SDC) | payer MEDICARE, OTHER ==
[2023-08-13] VITALS (10 sets, daily range): BP systolic 127–177; BP diastolic 59–112
[~2023-08-13] VITALS: Ht 185.4 cm; Wt 112.0 kg
[~2023-08-13 06:52] MED LIST changes: +PANT40 PO
[2023-08-13] MEDS ORDERED: ATOR40TA PO (07:44)
[2023-08-13] MEDS ORDERED: REPATHA SY140 MG/1 M SQ (07:44)
--- NOTE | 2023-08-13 10:50 | NUR ---
ASSUMED CARE OF PT. REPORT FROM NACHO YUN. PT SITTING UP IN BED A&OX4.
--- NOTE | 2023-08-13 10:58 | NUR ---
NO BLEEDING NOTED TO RADIAL ACCESS SITE. SITE SOFT AND NON-TENDER PER PT
--- NOTE | 2023-08-13 11:44 | NUR ---
2cc REMOVED FROM TR BAND. NO BLEEDING NOTED. SITE SOFT AND NON-TENDER PER PT
--- NOTE | 2023-08-13 11:57 | NUR ---
2cc REMOVED FROM TR BAND. NO BLEEDING NOTED. SITE SOFT AND NON-TENDER PER PT
--- NOTE | 2023-08-13 11:58 | NUR ---
PT GIVEN LUNCH TRAY. PT SITTING UP IN CHAIR EATING.
--- NOTE | 2023-08-13 12:17 | NUR ---
2 CC REMOVED FROM TR BAND. NO BLEEDING NOTED. SITE SOFT AND NON-TENDER
--- NOTE | 2023-08-13 13:01 | NUR ---
PT BACK TO RECLINER AFTER AMBULATING TO RESTROOM. REPEAT V/S.
--- NOTE | 2023-08-13 13:03 | NUR ---
2CC REMOVED FROM TR BAND. NO BLEEDING NOTED. SITE SOFT AND NON-TENDER.
--- NOTE | 2023-08-13 13:27 | NUR ---
R RADIAL DEFLATED TR BAND SOFT NON-TENDER WITH NO HEMATOMA, NO PULSATILE BLEEDING AND WRIST BOARD IN PLACE.
--- NOTE | 2023-08-13 14:13 | NUR ---
pt given dc instructions and verbalized understanding. iv out. pt chnaged. cloth dot, arm board and sling applied. no bleeding noted. site soft and non-tender per pt. [employer] called to take pt home. pt taken to [facility] via [facility].
== END 2023-08-13 15:17 | disposition home or self-care (01) ==
LOC: MHTC 06:52
DX: I25.10 Atherosclerotic heart disease of native coronary artery without angina pectoris (principal); E78.5 Hyperlipidemia, unspecified; J44.9 Chronic obstructive pulmonary disease, unspecified; Z88.8 Allergy status to other drugs, medicaments and biological substances; F17.200 Nicotine dependence, unspecified, uncomplicated; I48.19 Other persistent atrial fibrillation
CPT/HCPCS: 76937; 93458; 99152; 99153; C1769; C1887; C1894; J1644; J2250; J3010; J7030; J7050; Q9967

== ENCOUNTER → 2023-08-26 | Outpatient (CLI) | payer MEDICARE, OTHER ==
[~2023-08-26] MED LIST changes: +ATOR40TA PO; +REPATHA SY140 MG/1 M SQ
[2023-08-26 17:42] LABS: U Amphetamine Screen Not Detected; U Barbituate Screen Not Detected; U Benzodiazapine Screen Not Detected; U Buprenorphine Screen Not Detected; U Cannabinoids Screen Not Detected; U Cocaine Screen Not Detected; U Methadone Screen Not Detected; U Methamphetamine Screen Not Detected; U Opiates Screen Not Detected; U Oxycodone Screen DETECTED; U Phencyclidine Screen Not Detected; U Propoxyphene Screen Not Detected
== END ==
LOC: LAB SHORT 09:30 → LAB 09:30
PROVIDERS: Family Medicine
DX: Z51.81 Encounter for therapeutic drug level monitoring (principal); Z79.891 Long term (current) use of opiate analgesic

== ENCOUNTER → 2024-12-13 | Outpatient (CLI) | payer MEDICARE, OTHER ==
[2024-12-13 12:25] LABS: Source, Urine Clean Catch
[2024-12-13 15:36] LABS: Bacteria Rare /hpf; Red Blood Cells, Urine 50-100 /hpf (0-2); Squamous Epithelial Cells Rare /hpf (Few)
== END ==
LOC: LAB SHORT 12:22 → LAB 12:22
PROVIDERS: Physician Assistant
DX: R31.0 Gross hematuria (principal)
CPT/HCPCS: 81015; 87086

== ENCOUNTER 2025-01-15 11:52 | Observation (INO) | payer MEDICARE, OTHER ==
[~2025-01-15] VITALS: Ht 185.4 cm; Wt 105.6 kg
[2025-01-15 12:12] LABS: BASOPHILS PERCENT AUTO 1 % (0-2); EOSINOPHILS ABSOLUTE AUTO 0.12 K/mm3 (0.00-0.68); EOSINOPHILS PERCENT AUTO 1 % (0-6); Hematocrit 41.4 % (37.0-53.0); IMMATURE GRAN ABSOLUTE AUTO 0.02 K/mm3 (0.00-0.10); IMMATURE GRAN PERCENT AUTO 0 % (0-1); LYMPHOCYTES ABSOLUTE AUTO 1.84 K/mm3 (0.84-5.20); LYMPHOCYTES PERCENT AUTO 19 % (21-46); MONOCYTES ABSOLUTE AUTO 0.87 K/mm3 (0.16-1.47); MONOCYTES PERCENT AUTO 9 % (4-13); Mean Corpuscular HGB Conc 33.8 g/dL (31.5-36.5); Mean Corpuscular Volume 92 fL (80-100); Mean Platelet Volume 9.2 fL (9.1-12.4); NEUTROPHILS ABSOLUTE AUTO 6.54 K/mm3 (1.96-9.15); NEUTROPHILS PERCENT AUTO 69 % (41-73); Platelet Count 168 K/mm3 (150-400); RDW Coefficient Variation 14.1 % (11.7-14.2); RDW Standard Deviation 47.3 fL (35.1-46.3); Red Blood Cell Count 4.51 M/mm3 (4.30-5.90); White Blood Cell Count 9.49 K/mm3 (4.00-11.30)
[2025-01-15 12:33] LABS: Albumin, Blood 3.6 g/dL (3.4-5.0); Bilirubin, Total 1.3 mg/dL (0.1-1.0); Bun/Creatinine Ratio 21.8 (12.0-20.0); Calcium, Blood 9.1 mg/dL (8.5-10.1); Creatinine, Blood 0.92 mg/dL (0.60-1.20); Globulin, Blood 3.6 g/dL (2.2-4.0); Potassium, Blood 4.2 mmol/L (3.5-5.5); Total Protein, Blood 7.2 g/dL (6.4-8.2)
[2025-01-15 14:12] LABS: Source, Urine Clean Catch
[2025-01-15 14:51] LABS: Appearance, Urine Cloudy (Clear); Bilirubin, Urine Neg (Neg); Blood, Urine 5+ (Neg); Color, Urine Brown (P-Yellow); Glucose Qualitative, Urine Neg (Neg); Ketones, Urine Neg (Neg); Leukocyte Esterase, Urine 1+ (Neg); Nitrite, Urine Neg (Neg); Protein, Urine 2+ (Neg); Urobilinogen, Urine 1+ (Normal)
[2025-01-15 15:03] LABS: Bacteria Few /hpf; Red Blood Cells, Urine TNTC /hpf (0-2); Squamous Epithelial Cells Rare /hpf (Few)
[2025-01-15] MEDS ORDERED: Furosemide 10 MG / ML 2ML Vial IV ONE (15:20)
[2025-01-15] MEDS ORDERED: AMLO10 PO (15:23)
[2025-01-15] MEDS ORDERED: FLU VACC TS2024-25(6MOS UP)/PF 45 MCG/0.5 ML SYRINGE IM SCH (15:50)
[2025-01-15] MEDS ORDERED: HydrALAZINE HCl 20 MG / ML 1ML Vial IV PRN (16:35)
[2025-01-15 17:14] LABS: CHOL/HDL RATIO 2.4; Cholesterol 97 mg/dL (50-200); HDL Cholesterol 40 mg/dL (>39); Low Density Lipoprotein Chol 40 mg/dL (0-110); Triglycerides 83 mg/dL (30-160); Very Low Density Lipoprot Chol 16 mg/dL (6-32)
[2025-01-15] MEDS ORDERED: OXYCODONE-ACET1 EAC3 PO (19:59)
[2025-01-15] MEDS ORDERED: ATEN50 PO (20:01)
[2025-01-15] MEDS ORDERED: Ramipril10 MG PO (20:02)
[2025-01-15 21:59] VITALS: BP 179/67
--- NOTE | 2025-01-15 22:25 | NUR ---
TRANSFER NOTE: PT AOX4 TRANSFERRED SELF FROM WHEELCHAIR TO BED WITHOUT ISSUE. ORIENTED TO ROOM AND INSTRUCTED TO CALL IF HE NEEDS TO USE THE RESTROOM. PT IN BED RESTING, BED IN LOWEST POSITION, CALL LIGHT IN REACH.
[2025-01-16 00:02] VITALS: BP 172/56
[2025-01-16] MEDS ORDERED: Albuterol 2.5 MG/3 ML VIAL INH PRN (03:25)
[2025-01-16 03:55] VITALS: BP 132/66
--- NOTE | 2025-01-16 04:49 | NUR ---
SHIFT SUMMARY: PT AOX4 ABLE TO MAKE NEEDS KNOWN, CALLS APPROPRIATELY. PT PLEASANT MOOD AND AFFECT, IND IN THE ROOM JUST SLOW AT TIMES. WAS COMPLAINING OF SOME DIFFICULTY "GETING FULL BREATHES" PROVIDER NOTIFIED, BD PROTOCOL PLACED AND RESP SAW PT. TREATMENTS ADDED TO EMR. PT TOLERATING WELL. GIVEN RECLINER AND MOVES BETWEEN THE TWO IS COMFORTABLE. TOLERATING MEDICATIONS WELL AND USING THE RESTROOM REGULARLY. PT RUNNING AFIB WITH OCCASIONAL PVCS. PT IN BED RESTING, BED IN LOWEST POSITION, CALL LIGHT IN REACH. CONTINUING CARE.
[2025-01-16 05:39] LABS: BASOPHILS ABSOLUTE AUTO 0.07 K/mm3 (0.00-0.23); BASOPHILS PERCENT AUTO 1 % (0-2); EOSINOPHILS ABSOLUTE AUTO 0.04 K/mm3 (0.00-0.68); EOSINOPHILS PERCENT AUTO 0 % (0-6); Hematocrit 43.6 % (37.0-53.0); Hemoglobin 14.7 g/dL (13.5-17.5); IMMATURE GRAN ABSOLUTE AUTO 0.04 K/mm3 (0.00-0.10); IMMATURE GRAN PERCENT AUTO 0 % (0-1); LYMPHOCYTES ABSOLUTE AUTO 1.28 K/mm3 (0.84-5.20); LYMPHOCYTES PERCENT AUTO 12 % (21-46); MONOCYTES ABSOLUTE AUTO 0.81 K/mm3 (0.16-1.47); MONOCYTES PERCENT AUTO 8 % (4-13); Mean Corpuscular HGB 30.3 pg (26.0-34.0); Mean Corpuscular HGB Conc 33.7 g/dL (31.5-36.5); Mean Corpuscular Volume 90 fL (80-100); Mean Platelet Volume 9.7 fL (9.1-12.4); NEUTROPHILS ABSOLUTE AUTO 8.53 K/mm3 (1.96-9.15); NEUTROPHILS PERCENT AUTO 79 % (41-73); Platelet Count 191 K/mm3 (150-400); RDW Coefficient Variation 14.1 % (11.7-14.2); RDW Standard Deviation 46.4 fL (35.1-46.3); Red Blood Cell Count 4.85 M/mm3 (4.30-5.90); White Blood Cell Count 10.77 K/mm3 (4.00-11.30)
[2025-01-16 05:58] LABS: Bun/Creatinine Ratio 23.3 (12.0-20.0); Calcium, Blood 9.3 mg/dL (8.5-10.1); Creatinine, Blood 0.95 mg/dL (0.60-1.20); Potassium, Blood 3.7 mmol/L (3.5-5.5)
[2025-01-16] MEDS ORDERED: Pantoprazole Sodium 40 MG Tab PO SCH (06:00)
[2025-01-16 07:24] VITALS: BP 145/53
[2025-01-16] MEDS ORDERED: Furosemide 10 MG/ML 4ML Vial IV SCH (09:00)
[2025-01-16] MEDS ORDERED: AmLODIPine Besylate 5 MG Tab PO SCH (09:00)
[2025-01-16] MEDS ORDERED: Lisinopril 20 MG Tab PO SCH (09:00)
[2025-01-16 11:40] VITALS: BP 149/64
[2025-01-16] MEDS ORDERED: TRELEGY ELLIPT1 EACH INH (13:59)
[2025-01-16 15:24] VITALS: BP 150/60
[2025-01-16] MEDS ORDERED: Rivaroxaban 10 MG Tab PO SCH (17:00)
--- NOTE | 2025-01-16 17:45 | NUR ---
NO ACUTE CHANGES PT AOX4 AND COOPERATIVE OF CARE. PT IS ABLE TO MAKE ALL NEEDS KNOWN. PT DENIES ANY CHEST PAIN AND STATES HE IS NOT FEELING SOB. PT CONTINUES TO DIURESIS. NO DISTRESS NOTED AND CALL LIGHT IN REACH WILL CONTINUE TO MONITOR.
[2025-01-16 20:12] VITALS: BP 145/70
[2025-01-17 00:18] VITALS: BP 147/51
[2025-01-17 04:21] VITALS: BP 155/78
--- NOTE | 2025-01-17 04:46 | NUR ---
SHIFT SUMMARY: PT AOX4 IND IN ROOM, CALLS APPROPRAITELY AND IS ABLE TO MAKE NEEDS KNOWN. PT DENIES ANY SOB AND CP. TOLERATING MEDICATIONS WELL. NO ACUTE EVENTS OVERNIGHT. EDEMA IN LEGS APPEAR TO HAVE GONE DOWN A LOT SINCE ADMISSION. PT STATES FEELING BETTER AND BREATHING EASIER. STILL VERY PLEASANT AND COOPERATIVE IN CARE. PT SITTING IN CHAIR RESTING, CALL LIGHT IN REACH. CONTINUING CARE.
[2025-01-17 07:34] VITALS: BP 147/75
[2025-01-17 07:35] LABS: Bun/Creatinine Ratio 24.3 (12.0-20.0); Calcium, Blood 9.4 mg/dL (8.5-10.1); Creatinine, Blood 0.99 mg/dL (0.60-1.20); Potassium, Blood 3.3 mmol/L (3.5-5.5)
[2025-01-17] MEDS ORDERED: Potassium Chloride 20 MEQ TabCR PO ONE (09:45)
[2025-01-17 11:44] VITALS: BP 132/65
[2025-01-17] MEDS ORDERED: K-TAB ER20 ME1 PO (12:58)
[2025-01-17] MEDS ORDERED: FURO40 PO (12:58)
--- NOTE | 2025-01-17 15:00 | NUR ---
PT DISCHARGED THE PT WAS GIVEN DC INSTRUCTIONS BY HIS PRIMARY RN. THE PT WAS TRANSFERED VIA WHEELCHAIR ACCOMPANIED BY THE IT HELP DESK ASSOCIATE. PTWAS A/OX4, BREATHING EASILY AT TIME OF DC.
--- NOTE | 2025-01-17 15:42 | NUR ---
PT DID VERY WELL THROUGHOUT THE DAY. AOX4 INDEPENDENT IN ROOM AND COOPERATIVE OF CARE.DENIED ANY PAIN AND WAS ABLE TO MAKE ALL NEEDS KNOWN.
== END 2025-01-17 15:35 | disposition home or self-care (01) ==
LOC: ER 11:52 → ERHOLD 11:53 → MEDS 11:53 → ENPENDDIS 01-17 12:58 → MEDS 01-17 15:35
PROVIDERS: Emergency Medicine; Physician Assistant; ADMIT Family Medicine
DX: I11.0 Hypertensive heart disease with heart failure (principal); I50.9 Heart failure, unspecified; I48.91 Unspecified atrial fibrillation; E66.9 Obesity, unspecified; I71.9 Aortic aneurysm of unspecified site, without rupture; E78.5 Hyperlipidemia, unspecified; G62.9 Polyneuropathy, unspecified; I25.10 Atherosclerotic heart disease of native coronary artery without angina pectoris; J44.9 Chronic obstructive pulmonary disease, unspecified; Z68.30 Body mass index [BMI] 30.0-30.9, adult; Z72.0 Tobacco use; Z79.899 Other long term (current) drug therapy; Z88.8 Allergy status to other drugs, medicaments and biological substances
CPT/HCPCS: 36415; 71046; 80048; 80053; 80061; 81001; 83690; 83735; 83880; 84443; 84484; 85025; 87086; 93005; 93010; 94640; 94664; 94760; 94762; 96374; 96375; 96376; 99285-25; A9270; C8929; G0378; J0360; J1940; Q9957

== ENCOUNTER 2025-02-19 14:14 | Inpatient (IN) | payer MEDICARE, OTHER ==
[~2025-02-19] VITALS: Ht 185.4 cm; Wt 98.1 kg
[2025-02-23 14:40] VITALS: BP 104/69
== END 2025-02-23 15:00 | disposition home or self-care (01) | DRG 286 ==
LOC: ER 14:14 → PCU 16:23 → ERHOLD 16:23 → PCU 18:11
PROVIDERS: ADMIT Internal Medicine
PROC: B211YZZ Fluoroscopy of Multiple Coronary Arteries using Other Contrast (ICD-10-PCS; principal; 2025-02-23)
PROC: 4A023N6 Measurement of Cardiac Sampling and Pressure, Right Heart, Percutaneous Approach (ICD-10-PCS; principal; 2025-02-23)
DX: I11.0 Hypertensive heart disease with heart failure (principal); I50.23 Acute on chronic systolic (congestive) heart failure; I73.9 Peripheral vascular disease, unspecified; I48.91 Unspecified atrial fibrillation; I25.10 Atherosclerotic heart disease of native coronary artery without angina pectoris; I35.0 Nonrheumatic aortic (valve) stenosis; J44.9 Chronic obstructive pulmonary disease, unspecified; E78.5 Hyperlipidemia, unspecified; F17.290 Nicotine dependence, other tobacco product, uncomplicated; E66.9 Obesity, unspecified; Z68.30 Body mass index [BMI] 30.0-30.9, adult; Z96.652 Presence of left artificial knee joint; Z98.890 Other specified postprocedural states; Z88.8 Allergy status to other drugs, medicaments and biological substances; Z79.899 Other long term (current) drug therapy

== ENCOUNTER → 2025-02-19 | Outpatient (CLI) | payer MEDICARE, OTHER ==
[~2025-02-19] MED LIST changes: +ALBU8HFA2 INH; +ATOR80 PO; +FURO40 PO; +JARDIANCE10 MG PO; +K-TAB ER20 ME1 PO; +LOSA25 PO; +METO50ER PO; +Nicoderm Cq1 EAC1 TOP; +OXYCODONE-ACET1 EAC3 PO; +Ramipril10 MG PO; +SPIR25 PO; +TRELEGY ELLIPT1 EACH INH; +XARELTO15 MG PO
[2025-02-19 13:04] LABS: BASOPHILS ABSOLUTE AUTO 0.09 K/mm3 (0.00-0.23); BASOPHILS PERCENT AUTO 1 % (0-2); EOSINOPHILS ABSOLUTE AUTO 0.08 K/mm3 (0.00-0.68); EOSINOPHILS PERCENT AUTO 1 % (0-6); Hemoglobin 12.9 g/dL (13.5-17.5); IMMATURE GRAN ABSOLUTE AUTO 0.03 K/mm3 (0.00-0.10); IMMATURE GRAN PERCENT AUTO 0 % (0-1); LYMPHOCYTES ABSOLUTE AUTO 1.64 K/mm3 (0.84-5.20); LYMPHOCYTES PERCENT AUTO 19 % (21-46); MONOCYTES ABSOLUTE AUTO 0.69 K/mm3 (0.16-1.47); MONOCYTES PERCENT AUTO 8 % (4-13); Mean Corpuscular HGB 30.5 pg (26.0-34.0); Mean Corpuscular HGB Conc 32.3 g/dL (31.5-36.5); Mean Corpuscular Volume 95 fL (80-100); Mean Platelet Volume 9.4 fL (9.1-12.4); NEUTROPHILS ABSOLUTE AUTO 6.23 K/mm3 (1.96-9.15); NEUTROPHILS PERCENT AUTO 71 % (41-73); Platelet Count 170 K/mm3 (150-400); RDW Coefficient Variation 15.2 % (11.7-14.2); RDW Standard Deviation 51.6 fL (35.1-46.3); Red Blood Cell Count 4.23 M/mm3 (4.30-5.90); White Blood Cell Count 8.76 K/mm3 (4.00-11.30)
[2025-02-19 13:15] LABS: Albumin, Blood 3.6 g/dL (3.4-5.0); Albumin/Globulin Ratio 0.9 (0.8-1.8); Bilirubin, Total 1.6 mg/dL (0.1-1.0); Bun/Creatinine Ratio 19.4 (12.0-20.0); Calcium, Blood 9.4 mg/dL (8.5-10.1); Creatinine, Blood 1.24 mg/dL (0.60-1.20); Globulin, Blood 3.8 g/dL (2.2-4.0); Potassium, Blood 4.6 mmol/L (3.5-5.5); Total Protein, Blood 7.4 g/dL (6.4-8.2)
== END ==
LOC: LAB 13:00 → LAB SHORT 13:00
PROVIDERS: Family Medicine
DX: R06.02 Shortness of breath (principal)
CPT/HCPCS: 80053; 83880; 84484; 85025

== ENCOUNTER 2025-03-14 12:44 | Emergency (ER) | payer MEDICARE, OTHER ==
[~2025-03-14] VITALS: Ht 188 cm; Wt 106.6 kg
[2025-03-14 13:20] VITALS: BP 103/72
[2025-03-14 13:46] LABS: BASOPHILS ABSOLUTE AUTO 0.08 K/mm3 (0.00-0.23); BASOPHILS PERCENT AUTO 1 % (0-2); EOSINOPHILS ABSOLUTE AUTO 0.06 K/mm3 (0.00-0.68); EOSINOPHILS PERCENT AUTO 1 % (0-6); Hematocrit 44.4 % (37.0-53.0); Hemoglobin 14.6 g/dL (13.5-17.5); IMMATURE GRAN ABSOLUTE AUTO 0.03 K/mm3 (0.00-0.10); IMMATURE GRAN PERCENT AUTO 0 % (0-1); LYMPHOCYTES ABSOLUTE AUTO 1.75 K/mm3 (0.84-5.20); LYMPHOCYTES PERCENT AUTO 17 % (21-46); MONOCYTES PERCENT AUTO 5 % (4-13); Mean Corpuscular HGB 30.7 pg (26.0-34.0); Mean Corpuscular HGB Conc 32.9 g/dL (31.5-36.5); Mean Corpuscular Volume 94 fL (80-100); Mean Platelet Volume 9.5 fL (9.1-12.4); NEUTROPHILS ABSOLUTE AUTO 7.91 K/mm3 (1.96-9.15); NEUTROPHILS PERCENT AUTO 77 % (41-73); Platelet Count 181 K/mm3 (150-400); RDW Coefficient Variation 15.3 % (11.7-14.2); RDW Standard Deviation 52.7 fL (35.1-46.3); Red Blood Cell Count 4.75 M/mm3 (4.30-5.90); White Blood Cell Count 10.33 K/mm3 (4.00-11.30)
[2025-03-14 14:16] LABS: Albumin/Globulin Ratio 0.9 (0.8-1.8); Bilirubin, Total 1.1 mg/dL (0.1-1.0); Bun/Creatinine Ratio 27.6 (12.0-20.0); Calcium, Blood 9.8 mg/dL (8.5-10.1); Creatinine, Blood 1.16 mg/dL (0.60-1.20); Globulin, Blood 4.6 g/dL (2.2-4.0); Total Protein, Blood 8.6 g/dL (6.4-8.2)
== END 2025-03-14 18:06 | disposition home or self-care (01) ==
LOC: ER 12:44
PROVIDERS: Physician Assistant
DX: I73.9 Peripheral vascular disease, unspecified (principal); I10 Essential (primary) hypertension; I48.91 Unspecified atrial fibrillation; E78.5 Hyperlipidemia, unspecified; G62.9 Polyneuropathy, unspecified; Z95.820 Peripheral vascular angioplasty status with implants and grafts; Z87.891 Personal history of nicotine dependence; Z88.8 Allergy status to other drugs, medicaments and biological substances; Z79.51 Long term (current) use of inhaled steroids; Z79.01 Long term (current) use of anticoagulants; Z79.84 Long term (current) use of oral hypoglycemic drugs; Z79.899 Other long term (current) drug therapy
CPT/HCPCS: 73620; 80053; 85025; 93926; 93971; 99284-25

== ENCOUNTER 2025-05-23 03:50 | Day surgery (SDC) | payer MEDICARE, OTHER ==
[~2025-05-23 03:50] MED LIST changes: +Clindamycin HC150 MG PO; +METO25ER PO
== END 2025-05-23 23:00 | disposition home or self-care (01) ==
LOC: WOUND 03:50
DX: I70.245 Atherosclerosis of native arteries of left leg with ulceration of other part of foot (principal); L97.523 Non-pressure chronic ulcer of other part of left foot with necrosis of muscle; J43.9 Emphysema, unspecified; I48.91 Unspecified atrial fibrillation; I25.10 Atherosclerotic heart disease of native coronary artery without angina pectoris; I10 Essential (primary) hypertension; I25.2 Old myocardial infarction; K21.9 Gastro-esophageal reflux disease without esophagitis; Z72.0 Tobacco use; Z95.820 Peripheral vascular angioplasty status with implants and grafts
CPT/HCPCS: G0463

== ENCOUNTER 2025-06-04 04:31 | Emergency (ER) | payer MEDICARE, OTHER ==
[~2025-06-04] VITALS: Ht 188 cm; Wt 94.8 kg
[2025-06-04 04:42] VITALS: BP 138/105
[2025-06-04] MEDS ORDERED: Oxymetazoline 0.05% Nasal Relief Spray 15mL BTL ONE (04:50)
[2025-06-04] MEDS ORDERED: Tranexamic Acid 1000 MG/10 ML 10ML Vial (SDV) TOP ONE (05:15)
[2025-06-04] MEDS ORDERED: AFRIN15 M6 (05:47)
== END 2025-06-04 06:00 | disposition home or self-care (01) ==
LOC: ER 04:31
DX: R04.0 Epistaxis (principal); I10 Essential (primary) hypertension; E78.5 Hyperlipidemia, unspecified; I48.91 Unspecified atrial fibrillation; J44.9 Chronic obstructive pulmonary disease, unspecified; I25.10 Atherosclerotic heart disease of native coronary artery without angina pectoris; Z79.01 Long term (current) use of anticoagulants; Z79.82 Long term (current) use of aspirin; Z79.899 Other long term (current) drug therapy; Z88.8 Allergy status to other drugs, medicaments and biological substances; Z87.891 Personal history of nicotine dependence
CPT/HCPCS: A9270

== ENCOUNTER 2025-08-11 16:42 | Inpatient (IN) | payer MEDICARE, OTHER ==
[~2025-08-11] VITALS: Ht 185.4 cm; Wt 82.2 kg
[~2025-08-11 16:42] MED LIST changes: +AFRIN15 M6
[2025-08-11] MEDS ORDERED: Ipratropium/Albuterol SulF 2.5-0.5MG/3 ML Amp INH ONE (17:10)
[2025-08-11 17:22] LABS: BASOPHILS ABSOLUTE AUTO 0.10 K/mm3 (0.00-0.23); BASOPHILS PERCENT AUTO 1 % (0-2); EOSINOPHILS ABSOLUTE AUTO 0.03 K/mm3 (0.00-0.68); EOSINOPHILS PERCENT AUTO 0 % (0-6); Hematocrit 44.7 % (37.0-53.0); Hemoglobin 14.7 g/dL (13.5-17.5); IMMATURE GRAN ABSOLUTE AUTO 0.02 K/mm3 (0.00-0.10); IMMATURE GRAN PERCENT AUTO 0 % (0-1); LYMPHOCYTES ABSOLUTE AUTO 1.13 K/mm3 (0.84-5.20); LYMPHOCYTES PERCENT AUTO 16 % (21-46); MONOCYTES ABSOLUTE AUTO 1.17 K/mm3 (0.16-1.47); MONOCYTES PERCENT AUTO 16 % (4-13); Mean Corpuscular HGB Conc 32.9 g/dL (31.5-36.5); Mean Corpuscular Volume 92 fL (80-100); NEUTROPHILS ABSOLUTE AUTO 4.75 K/mm3 (1.96-9.15); NEUTROPHILS PERCENT AUTO 66 % (41-73); NRBC ABSOLUTE 0.00 K/mm3 (0.00-0.02); NRBC Auto 0.0 /100 WBC (0.0-0.2); Platelet Count 221 K/mm3 (150-400); RDW Coefficient Variation 16.0 % (11.7-14.2); RDW Standard Deviation 54.1 fL (35.1-46.3)
[2025-08-11 17:43] LABS: Alanine Aminotransfer (ALT/SGP 25.0 U/L (12-78); Albumin, Blood 3.9 g/dL (3.4-5.0); Albumin/Globulin Ratio 0.9 (0.8-1.8); Anion Gap 10.0 mmol/L (3-11); Aspartate Aminotrans (AST/SGOT 27.0 U/L (12-37); Bilirubin, Total 0.9 mg/dL (0.1-1.0); Blood Urea Nitrogen 25.0 mg/dL (8-24); CO2, Blood 27.0 mmol/L (21-32); Calcium, Blood 9.0 mg/dL (8.5-10.1); Chloride, Blood 100.0 mmol/L (98-108); Creatinine, Blood 1.07 mg/dL (0.60-1.20); Globulin, Blood 4.2 g/dL (2.2-4.0); Glucose, Blood 120.0 mg/dL (70-99); Potassium, Blood 4.5 mmol/L (3.5-5.5); Sodium, Blood 132.0 mmol/L (136-145); Total Protein, Blood 8.1 g/dL (6.4-8.2)
[2025-08-11 18:46] LABS: Source, Urine Clean Catch
[2025-08-11 18:50] LABS: Bilirubin, Urine Neg (Neg); Color, Urine Yellow (P-Yellow); Glucose Qualitative, Urine Neg (Neg); Ketones, Urine Neg (Neg); Leukocyte Esterase, Urine 1+ (Neg); Protein, Urine 1+ (Neg); Specific Gravity, Urine 1.020 (1.003-1.022); Urobilinogen, Urine NORM (Normal)
[2025-08-11 19:01] LABS: Red Blood Cells, Urine 50-100 /hpf (0-2)
[2025-08-11] MEDS ORDERED: Tiotropium Bromide 2.5 MCG/ACT MIST INHAL (10 ACT/4 GM) INH SCH (19:35)
[2025-08-11] MEDS ORDERED: FLU VACC TS2025(65UP)/MF59C/PF 45 MCG/0.5 ML SYRINGE IM SCH (19:55)
[2025-08-11] MEDS ORDERED: Formoterol/Mometasone MDI 5/200 mcg 13 GM INH SCH (19:55)
[2025-08-11 20:16] LABS: Influenza A, PCR NEGATIVE (NEGATIVE); Influenza B, PCR NEGATIVE (NEGATIVE); Resp Syncytial Virus, PCR NEGATIVE (NEGATIVE); SARS-Cov-2 (COVID-19) PCR, MMC POSITIVE (NEGATIVE)
[2025-08-11] MEDS ORDERED: Heparin Sodium,Porcine 5,000 UNIT/0.5 ML SDV SC SCH (21:00)
[2025-08-11] MEDS ORDERED: FURO20 PO (21:34)
[2025-08-11 22:04] VITALS: BP 136/79
--- NOTE | 2025-08-11 22:24 | NUR ---
ARRIVAL TO UNIT REPORT RECEIVED FROM DIRECTOR OF GRADUATE MEDICAL EDUCATION AT 0902, PT ARRIVES TO [facility] BY [facility] AT APPROX 2123. HE IS ABLE TO AMBULATE WITHOUT ASSISTANCE TO THE HOSPITAL BED. HE IS ALERT AND ORIENTED AND DENIES PAIN. ON CONTINUOUS CARDIAC TELEMETRY IN AFIB AT TIMES, AFLUTTER AT TIMES PER ELECTROENCEPHALOGRAPHIC TECHNICIAN. HR 80'S. ENDORSES MINIMAL CHEST PRESSURE, BUT NO PAIN. AFEBRILE. ON CONTINUOUS PULSE OXIMETRY, SATS ABOVE 95%. BREATHING IS EVEN, DYSPNEA WITH EXERTION. LUNG SOUNDS CLEAR, BUT DIM. ENDORSES NONPRODUCTIVE COUGH X3 DAYS. HE IS CONTINENT OF URINE AND STOOL, STATES HE HAS BEEN URINATING AND HAVING REGULAR BMS WITHIN HIS NORMAL PATTERN. HE IS INDEPENDENT IN ADL'S AT HOME AND REQUIRES NO ASSISTIVE DEVICES. HE USES GLASSES TO READ, DOES NOT HAVE DENTURES OR HEARING AIDS. LIVES IN A TRAILER ON HIS SISTERS PROPERTY. HE REQUIRES NO OXYGEN AT BASELINE AND DOES NOT USE A CPAP OR BIPAP. SKIN IS RELATIVELY INTACT. BLE DRY AND FLAKEY AND SCALING. 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 PT ON DROPLET PRECAUTIONS FOR COVID ISO.
[2025-08-12 00:42] VITALS: BP 109/62
[2025-08-12 03:59] VITALS: BP 124/51
[2025-08-12 04:29] LABS: Anion Gap 8.0 mmol/L (3-11); Blood Urea Nitrogen 25.0 mg/dL (8-24); CO2, Blood 30.0 mmol/L (21-32); Calcium, Blood 8.7 mg/dL (8.5-10.1); Chloride, Blood 99.0 mmol/L (98-108); Creatinine, Blood 1.11 mg/dL (0.60-1.20); Glucose, Blood 116.0 mg/dL (70-99); Magnesium, Blood 2.0 mg/dL (1.6-2.4); Potassium, Blood 3.6 mmol/L (3.5-5.5); Sodium, Blood 133.0 mmol/L (136-145)
--- NOTE | 2025-08-12 04:41 | NUR ---
PT REPORTS TO AID THAT HE IS SHORT OF BREATH. SATS INTO THE HIGH 80'S. LUNG SOUNDS CLEAR T/O. PLACED ON 2L NC. SATS ABOVE 95%.
--- NOTE | 2025-08-12 04:42 | NUR ---
SHIFT SUMMARY NO ACUTE CHANGES OVERNIGHT. PT REMAINS A/O, VERBALIZES NEEDS, USES CALL LIGHT APPROPRIATELY. ON CONTINUOUS CARDIAC TELEMETRY, IN AFIB, HR IN 80'S. DENIES CHEST PAIN BUT ENDORSES MILD CHEST PRESSURE THAT SEEMS TO BE IMPROVING PER PT. ON CONTINUOUS PULSE OXIMETRY, 2L NC, SATS ABOVE 95%. PT REPORTS SOB AND DYSPNEA WITH EXERTION. NONPRODUCTIVE COUGH PRESENT.
[2025-08-12 08:54] VITALS: BP 94/57
[2025-08-12 08:57] VITALS: BP 107/45
[2025-08-12 16:02] VITALS: BP 110/60
--- NOTE | 2025-08-12 18:27 | NUR ---
SHIFT SUMMARY: PT HAS BEEN A&Ox4, COOPERATIVE W/CARE, ABLE TO COMMUNICATE NEEDS. PT REPORTS INTERMITTENT SOB, STATES IT FELT MOST IMPROVED AFTER INHALER TREATMENTS BY RT, MAINTAINING O2 SATS >92% ON RA UP TO 2L NC, CONGESTED NONPRODUCTIVE COUGH. PT REPORTS FEELING TIRED AND ACHY BUT DENIES CHEST PAIN, AFLUTTER ON MONITOR, RATE 70s-80s. DIURESIS PER EMAR, PT USING URINAL AT BEDSIDE INDEPENDENTLY. DRY AND SKALY SKIN TO BILATERAL FEET, AMPUTATION TO L GREAT TOE HEALING WNL, SKIN IS PINK AND BLANCHABLE. AT THIS TIME, PT IS RESTING QUIETLY IN BED W/LIGHTS LOW AND CALL LIGHT IN REACH.
[2025-08-12 20:20] VITALS: BP 123/58
[2025-08-12] MEDS ORDERED: OxyCODONE 5 mg/Acetamin 325 mg TABLET PO SCH (21:00)
[2025-08-13 01:12] VITALS: BP 133/93
[2025-08-13 05:10] VITALS: BP 111/60
[2025-08-13 05:34] LABS: Anion Gap 9.0 mmol/L (3-11); Blood Urea Nitrogen 28.0 mg/dL (8-24); CO2, Blood 27.0 mmol/L (21-32); Calcium, Blood 8.9 mg/dL (8.5-10.1); Chloride, Blood 99.0 mmol/L (98-108); Creatinine, Blood 0.94 mg/dL (0.60-1.20); Glucose, Blood 117.0 mg/dL (70-99); Potassium, Blood 3.4 mmol/L (3.5-5.5); Sodium, Blood 132.0 mmol/L (136-145)
--- NOTE | 2025-08-13 06:19 | NUR ---
PT STABLE THROUGHOUT SHIFT. PT AOX4, INDEPENDENT USE OF URINAL AT BEDSIDE. PT REMAINS ON ROOM AIR WITH SATS GREATER THAN OR EQUAL TO 93%. NO C/O CP. PT HAS HAD GOOD URINARY OUTPUT THOUGH APPEARS MORE CONCENTRATED DARK YELLOW/KEVIN. PT HAS NON-PRODUCTIVE COUGH. VITAL SIGNS WNL AND PT REMAINS IN AFLUTTER W/O COMPLICATION. PT ABLE TO USE CALL LIGHT AND MAKE NEEDS KNOWN. PT DID C/O ITCHING AND STATES "THAT IT HAS BEEN GOING ON FOR A COUPLE OF MONTHS. I TAKE TWO BENADRYL FOR IT ABOUT EVERY FOUR HOURS WHEN IT HAPPENS." ITCHING IS NOT CONSTANT PER PT BUT EPISODIC IN NATURE. PT WAS CAUTIONED ABOUT OTC DRUG USE AND ADHERING TO DOSING GUIDELINES LISTED ON THE BOTTLES. PT VERBALIZES UNDERSTANDING THE IMPORTANCE OF THIS.
[2025-08-13 08:05] VITALS: BP 126/91
[2025-08-13 12:04] VITALS: BP 115/67
[2025-08-13] MEDS ORDERED: ATOR40TA PO (12:06)
--- NOTE | 2025-08-13 12:27 | NUR ---
DISCHARGE SUMMARY: PT HAS BEEN CLEARED FOR DC HOME. IV ACCESS HAS BEEN DC'd WNL. PT DRESSES SELF. DC PAPERWORK HAS BEEN PROVIDED, ALL QUESTIONS HAVE BEEN ANSWERED. PT ESCORTED FROM UNIT VIA W/C, RIDE HOME BY SISTER.
== END 2025-08-13 12:30 | disposition home or self-care (01) | DRG 291 ==
LOC: ER 16:42 → PCU 16:43
PROVIDERS: Emergency Medicine; Family Medicine; Nurse Practitioner Acute Care; Student in an Organized Health Care Education/Training Program; ADMIT Student in an Organized Health Care Education/Training Program
DX: I11.0 Hypertensive heart disease with heart failure (principal); I50.23 Acute on chronic systolic (congestive) heart failure; U07.1 COVID-19; I48.20 Chronic atrial fibrillation, unspecified; I25.10 Atherosclerotic heart disease of native coronary artery without angina pectoris; E78.5 Hyperlipidemia, unspecified; I73.9 Peripheral vascular disease, unspecified; J44.9 Chronic obstructive pulmonary disease, unspecified; K21.9 Gastro-esophageal reflux disease without esophagitis; I35.0 Nonrheumatic aortic (valve) stenosis; Z88.8 Allergy status to other drugs, medicaments and biological substances; Z79.82 Long term (current) use of aspirin; Z79.891 Long term (current) use of opiate analgesic; Z79.51 Long term (current) use of inhaled steroids; Z87.891 Personal history of nicotine dependence
CPT/HCPCS: 36415; 71045; 80048; 80053; 81001; 83735; 83880; 84484; 85025; 87086; 87637; 93005; 93010; 94640; 94664; 94760; 96372; 96374; 96376; 99285-25; A9270; C8929; G0378; J1644; J1938; Q9957